=== PATIENT | male | born 1965 | race Two or more races ===

== ENCOUNTER 2016-03-14 21:56 | Emergency (ER) | payer SELFPAY ==
[~2016-03-14] VITALS: Ht 182.9 cm; Wt 81.6 kg
[2016-03-14 22:21] VITALS: BP 119/81
[2016-03-14] MEDS ORDERED: CLINDAMYCIN HC300 MG ORAL (23:08)
--- NOTE | 2016-03-14 23:09 | Emergency Room Report ---
History of Present Illness General Chief Complaint: Pain Source: Patient Present Illness HPI This is a 50-year-old male presents with gum pain. Onset for last 3 weeks now. Worse with eating. No fever or chills. Occasional bleeding. No trauma. Allergies: Coded Allergies: AMOXICILLIN (Verified Allergy, Unknown, 03/14/16) Patient History Past Medical History: see triage record, old chart reviewed Past Surgical History: other Pertinent Family History: none Social History: Denies: drug use Immunizations: other Reviewed Nursing Documentation: PMH: Agreed, PSxH: Agreed Nursing Documentation-PMH Past Medical History: No Stated History Review of Systems Eye: Denies: blurred vision, eye pain ENT: Denies: ear pain, nose congestion, throat swelling Respiratory: Denies: cough, shortness of breath Cardiovascular: Denies: chest pain, palpitations Gastrointestinal: Denies: abdominal pain, diarrhea, nausea, vomiting Musculoskeletal: Denies: back pain, joint pain Skin: Denies: rash Neurological: Denies: headache, numbness Endocrine: Denies: increased thirst, increased urine Hematologic/Lymphatic: Denies: easy bruising All Other Systems: negative except mentioned in HPI Physical Exam Vital Signs Date Time Temp Pulse Resp B/P Pulse Ox O2 Delivery O2 Flow Rate FiO2 03/14/16 22:12 98.4 72 14 117/78 99 Room Air vitals normal. Sp02 EP Interpretation: reviewed, normal General Appearance: well appearing, no apparent distress, alert Head: normocephalic, atraumatic Eyes: bilateral eye EOMI, bilateral eye PERRL ENT: hearing grossly normal, normal pharynx, other - gums with irritation Neck: full range of motion, supple, no meningismus Respiratory: chest non-tender, lungs clear, normal breath sounds Cardiovascular #1: regular rate, rhythm, no murmur Gastrointestinal: normal bowel sounds, non tender, no mass, no organomegaly, no bruit, non-distended Musculoskeletal: back normal, gait/station normal, normal range of motion Psychiatric: mood/affect normal Skin: warm/dry Medical Decision Making Diagnostic Impression: Primary Impression: Gingiva disorder ER Course Patient presents with gingivitis. gum is irritate it. No evidence of ANUG. No obvious abscess. We'll discharge home with antibiotics and dentist followup. Last Vital Signs Date Time Temp Pulse Resp B/P Pulse Ox O2 Delivery O2 Flow Rate FiO2 03/14/16 22:21 98.3 69 15 119/81 100 Room Air Status: unchanged Disposition: HOME, SELF-CARE Condition: Stable Scripts Clindamycin Hcl (CLINDAMYCIN HCL) 300 Mg Capsule 300 MG ORAL THREE TIMES A DAY, #21 CAP Prov: LINDA MENJIVAR M.D. 03/14/16 Additional Instructions: Follow up with dentist JULIA. Return if worse. LINDA MENJIVAR M.D. Mar 14, 2016 23:09
== END 2016-03-14 23:12 | disposition home or self-care (01) ==
LOC: EMR 22:26
DX: K06.9 Disorder of gingiva and edentulous alveolar ridge, unspecified (principal); Z88.1 Allergy status to other antibiotic agents
CPT/HCPCS: 99283